=== PATIENT | female | born 1990 ===

== ENCOUNTER 2022-12-27 12:28 | Outpatient (CLI) | payer OTHER ==
[~2022-12-27 12:28] MED LIST: CHILDREN'S ASPI81 MG PO; LABETALOL HCL200 MG PO; PRENATAL TABLE1 EAC1 PO; SYNTHROID125 MCG PO
== END 2022-12-27 14:12 | disposition home or self-care (01) ==
LOC: PRENATAL 12:28
PROVIDERS: ATTEND Obstetrics & Gynecology Maternal & Fetal Medicine
DX: O26.849 Uterine size-date discrepancy, unspecified trimester (principal); O36.8199 Decreased fetal movements, unspecified trimester, other fetus; O10.019 Pre-existing essential hypertension complicating pregnancy, unspecified trimester; O34.219 Maternal care for unspecified type scar from previous cesarean delivery; O99.210 Obesity complicating pregnancy, unspecified trimester; Z3A.36 36 weeks gestation of pregnancy

== ENCOUNTER 2022-12-29 06:15 | Outpatient (CLI) | payer OTHER ==
[2022-12-29] MEDS ORDERED: SYNTHROID137 MCG PO (06:19)
== END 2022-12-29 09:49 | disposition home or self-care (01) ==
LOC: OBS/DEL 06:15
PROVIDERS: ATTEND Student in an Organized Health Care Education/Training Program
DX: O47.03 False labor before 37 completed weeks of gestation, third trimester (principal); Z3A.36 36 weeks gestation of pregnancy; Z91.040 Latex allergy status

== ENCOUNTER 2023-01-01 12:04 | Inpatient (IN) | payer OTHER ==
[~2023-01-01] VITALS: Ht 162.6 cm; Wt 2.3 kg
[~2023-01-01 12:04] MED LIST changes: +SYNTHROID137 MCG PO
[2023-01-02] MEDS ORDERED: PROGESTERONE100 M1 (16:19)
[2023-01-04] MEDS ORDERED: NAPR500T14 PO (08:24)
[2023-01-04] MEDS ORDERED: Tylenol #3 PO (08:24)
== END 2023-01-04 12:43 | disposition home or self-care (01) | DRG 784 ==
LOC: LDR 12:04 → OB/GYN 12:04 → LDR 12:58 → OB/GYN 21:51
PROVIDERS: ADMIT Obstetrics & Gynecology; ATTEND Obstetrics & Gynecology
PROC: 0UB70ZZ Excision of Bilateral Fallopian Tubes, Open Approach (ICD-10-PCS; 2023-01-01)
PROC: 4A1HXCZ Monitoring of Products of Conception, Cardiac Rate, External Approach (ICD-10-PCS; 2023-01-01)
PROC: 10D00Z1 Extraction of Products of Conception, Low, Open Approach (ICD-10-PCS; principal; 2023-01-01 21:00)
DX: O34.211 Maternal care for low transverse scar from previous cesarean delivery (principal); O41.03X0 Oligohydramnios, third trimester, not applicable or unspecified; O13.4 Gestational [pregnancy-induced] hypertension without significant proteinuria, complicating childbirth; Z3A.37 37 weeks gestation of pregnancy; Z37.0 Single live birth; Z20.822 Contact with and (suspected) exposure to COVID-19; Z30.2 Encounter for sterilization